=== PATIENT | female | born 1930 | race Caucasian/White ===

== ENCOUNTER 2020-08-19 21:59 | Inpatient (IN) ==
[2020-08-20] MEDS ORDERED: Naloxone 0.4 MG/ML INJ IVP PRN (00:31)
[2020-08-20] MEDS ORDERED: Ondansetron 4 MG/2 ML VIAL IVP PRN (00:31)
[2020-08-20 01:21] LABS: Basophils % 0.7 %; Eosinophils # 0.1 K/mcL (0.0-0.6); Eosinophils % 1.5 %; Hematocrit 38.6 % (35.3-44.9); Hemoglobin 13.2 g/dL (11.5-15.4); Immature Granulocytes % 0.4 % (0-4); Lymphocytes % 18.4 %; Mean Corpuscular HGB Conc 34.2 g/dL (31.6-35.5); Mean Corpuscular Hemoglobin 30.6 pg (28.0-33.3); Mean Corpuscular Volume 89.4 fL (83.0-100.0); Monocytes # 0.8 K/mcL (0.0-1.3); Monocytes % 13.8 %; Neutrophils # 3.5 K/mcL (1.6-8.9); Platelet Count 209 K/mcL (140-400); Red Blood Count 4.32 M/mcL (3.82-4.97); Red Cell Distribution Width 13.7 % (11.5-14.5); Segmented Neutrophils % 65.2 %; White Blood Count 5.4 K/mcL (4.3-11.1)
[2020-08-20 01:28] LABS: INR 2.6; Prothrombin Time 29.5 Seconds (9.4-12.1)
[2020-08-20 01:41] LABS: Alanine Aminotransferase 291 Units/L (7-52); Albumin 4.1 g/dL (3.5-5.7); Albumin/Globulin Ratio 1.5 (1.1-2.2); Alkaline Phosphatase 279 Units/L (34-104); Aspartate Amino Transferase 162 Units/L (13-39); BUN/Creatinine Ratio 19 (6-26); Bilirubin,Total 1.7 mg/dL (0.3-1.0); Blood Urea Nitrogen 11 mg/dL (8-23); Calcium 9.3 mg/dL (8.6-10.3); Carbon Dioxide 22 mEq/L (23-29); Chloride 100 mEq/L (98-107); Chol/HDL Ratio 2.4 (0-4.9); Cholesterol 185 mg/dL (< 200); Globulin 2.7 g/dL (2.4-3.5); Glucose 116 mg/dL (70-105); HDL Cholesterol 76 mg/dL (40-59); LDL Cholesterol,Calculated 98 mg/dL (< 100); Osmolality,Calculated 274 (280-300); Sodium 132 mEq/L (136-145); Total Protein 6.8 g/dL (6.4-8.9); Triglycerides 55 mg/dL (< 150); eGFR For African Americans > 60 (> 60); eGFR For Non-African Americans > 60 (> 60)
[2020-08-20] MEDS: Ringers Solution, Lactated 1,000 ML IVC SCH ×2 (01:52→11:44)
[2020-08-20 02:54] LABS: Hepatitis B Surface Antigen Nonreactive (Nonreactive)
[2020-08-20 03:22] LABS: Hepatitis C Virus Antibody Nonreactive (Nonreactive)
[2020-08-20 03:23] LABS: Hepatitis B Core IgM Nonreactive (Nonreactive)
[2020-08-20 03:24] LABS: Hepatitis A Antibody IgM Nonreactive (Nonreactive)
[2020-08-20 07:56] LABS: Bilirubin,Urine Negative (Negative); Blood,Urine Negative (Negative); Clarity,Urine Clear (Clear); Color,Urine Light-Yellow (Yellow); Glucose,Urine (UA) Normal (Normal); Ketones,Urine 10 mg/dL (Negative); Leukocyte Esterase,Urine Negative (Negative); Nitrite,Urine Negative (Negative); PH,Urine 7.5 pH Units (5.0-8.0); Protein,Urine Negative (Neg-Trace); Urobilinogen,Urine Normal (Normal)
[2020-08-20] MEDS ORDERED: Gadolinium Contrast Agent (WT Based) IV PRN (12:29)
[2020-08-20] MEDS ORDERED: *HR* LORazepam 2 MG/ML VIAL IVP ONE (12:44)
[2020-08-20] MEDS ORDERED: GADOBUTROL 30 MMOL/30 ML VIAL IVP ONE (13:00)
[2020-08-20] MEDS: Carbidopa/Levodopa ER 50/200 TABLET PO SCH ×2 (15:09→20:27)
[2020-08-20] MEDS: Gabapentin 100 MG CAPSULE PO SCH (20:28)
[2020-08-21 02:58] LABS: Basophils # 0.1 K/mcL (0.0-0.2); Eosinophils # 0.2 K/mcL (0.0-0.6); Eosinophils % 3.1 %; Hematocrit 39.6 % (35.3-44.9); Hemoglobin 12.7 g/dL (11.5-15.4); Immature Granulocytes % 0.6 % (0-4); Lymphocytes # 1.2 K/mcL (0.6-4.6); Lymphocytes % 24.6 %; Mean Corpuscular HGB Conc 32.1 g/dL (31.6-35.5); Mean Corpuscular Hemoglobin 30.1 pg (28.0-33.3); Mean Corpuscular Volume 93.8 fL (83.0-100.0); Mean Platelet Volume 9.1 fL (9.4-12.4); Monocytes # 0.7 K/mcL (0.0-1.3); Monocytes % 14.4 %; Neutrophils # 2.7 K/mcL (1.6-8.9); Platelet Count 174 K/mcL (140-400); Red Blood Count 4.22 M/mcL (3.82-4.97); Red Cell Distribution Width 14.2 % (11.5-14.5); Segmented Neutrophils % 56.3 %; White Blood Count 4.9 K/mcL (4.3-11.1)
[2020-08-21 03:09] LABS: BUN/Creatinine Ratio 28 (6-26); Blood Urea Nitrogen 14 mg/dL (8-23); Calcium 8.8 mg/dL (8.6-10.3); Carbon Dioxide 20 mEq/L (23-29); Chloride 101 mEq/L (98-107); Glucose 60 mg/dL (70-105); Osmolality,Calculated 278 (280-300); Potassium 3.7 mEq/L (3.5-5.1); Sodium 135 mEq/L (136-145); eGFR For African Americans > 60 (> 60); eGFR For Non-African Americans > 60 (> 60)
[2020-08-21] MEDS ORDERED: *HR* Dextrose 50 % in Water (Vial) 50 ML VIAL IVP ONE (05:47)
[2020-08-21] MEDS: lisinopriL 5 MG TABLET PO SCH (07:55)
[2020-08-21] MEDS: Carbidopa/Levodopa ER 50/200 TABLET PO SCH ×3 (07:55→20:20)
[2020-08-21 09:21] LABS: Albumin 3.9 g/dL (3.5-5.7); Albumin/Globulin Ratio 1.4 (1.1-2.2); Bilirubin,Indirect 1.2 mg/dL (0.0-1.0); Bilirubin,Total 2.2 mg/dL (0.3-1.0); Globulin 2.7 g/dL (2.4-3.5); Total Protein 6.6 g/dL (6.4-8.9)
[2020-08-21 10:08] LABS: INR 2.4; Prothrombin Time 26.8 Seconds (9.4-12.1)
[2020-08-21] MEDS: D5% in 0.45% NACL 1,000 ML IVC SCH (11:14)
[2020-08-21] MEDS: Gabapentin 100 MG CAPSULE PO SCH (20:20)
[2020-08-22] MEDS: D5% in 0.45% NACL 1,000 ML IVC SCH (02:12)
[2020-08-22] MEDS: Acetaminophen 325 MG TABLET PO PRN (03:44)
[2020-08-22 05:51] LABS: Basophils % 0.5 %; Eosinophils # 0.1 K/mcL (0.0-0.6); Hematocrit 39.3 % (35.3-44.9); Hemoglobin 12.7 g/dL (11.5-15.4); Immature Granulocytes % 0.5 % (0-4); Lymphocytes # 0.9 K/mcL (0.6-4.6); Lymphocytes % 15.4 %; Mean Corpuscular HGB Conc 32.3 g/dL (31.6-35.5); Mean Corpuscular Hemoglobin 29.3 pg (28.0-33.3); Mean Corpuscular Volume 90.8 fL (83.0-100.0); Monocytes # 0.9 K/mcL (0.0-1.3); Monocytes % 15.4 %; Neutrophils # 3.9 K/mcL (1.6-8.9); Platelet Count 203 K/mcL (140-400); Red Blood Count 4.33 M/mcL (3.82-4.97); Red Cell Distribution Width 13.6 % (11.5-14.5); Segmented Neutrophils % 67.2 %; White Blood Count 5.9 K/mcL (4.3-11.1)
[2020-08-22 05:58] LABS: INR 1.2; Prothrombin Time 14.1 Seconds (9.4-12.1)
[2020-08-22 06:14] LABS: Alanine Aminotransferase 26 Units/L (7-52); Albumin 3.8 g/dL (3.5-5.7); Albumin/Globulin Ratio 1.5 (1.1-2.2); Alkaline Phosphatase 261 Units/L (34-104); Aspartate Amino Transferase 64 Units/L (13-39); BUN/Creatinine Ratio 13 (6-26); Bilirubin,Direct 0.6 mg/dL (0.0-0.2); Bilirubin,Indirect 1.4 mg/dL (0.0-1.0); Blood Urea Nitrogen 6 mg/dL (8-23); Calcium 8.9 mg/dL (8.6-10.3); Carbon Dioxide 23 mEq/L (23-29); Chloride 101 mEq/L (98-107); Globulin 2.5 g/dL (2.4-3.5); Glucose 153 mg/dL (70-105); Osmolality,Calculated 275 (280-300); Potassium 3.4 mEq/L (3.5-5.1); Sodium 132 mEq/L (136-145); Total Protein 6.3 g/dL (6.4-8.9); eGFR For African Americans > 60 (> 60); eGFR For Non-African Americans > 60 (> 60)
[2020-08-22] MEDS: lisinopriL 5 MG TABLET PO SCH (08:00)
[2020-08-22] MEDS: Carbidopa/Levodopa ER 50/200 TABLET PO SCH ×3 (08:00→20:48)
[2020-08-22] MEDS ORDERED: *HR* FentaNYL (PF) 100 MCG/2 ML VIAL ONE (14:11)
[2020-08-22] MEDS ORDERED: *HR* Succinylcholine 200 MG/10 ML VIAL IVP ONE (14:12)
[2020-08-22] MEDS ORDERED: Ondansetron 4 MG/2 ML VIAL ONE (14:13)
[2020-08-22] MEDS ORDERED: *HR* Propofol 200 MG/20 ML VIAL IVP ONE (14:22)
[2020-08-22] MEDS ORDERED: Lidocaine -MPF 4% 5 ML AMPUL ONE (14:22)
[2020-08-22] MEDS ORDERED: Indomethacin 50 MG SUPP.RECT RC ONE (15:08)
[2020-08-22] MEDS ORDERED: Ringers Solution, Lactated 1,000 ML IVC SCH (15:45)
[2020-08-22] MEDS: *HR* Heparin 5,000 UNIT/ML VIAL SQ SCH (18:18)
[2020-08-22] MEDS ORDERED: *HR* Labetalol 20 MG/4 ML SYRINGE IVP PRN (18:46)
[2020-08-22] MEDS: Gabapentin 100 MG CAPSULE PO SCH (20:48)
[2020-08-23 05:44] LABS: INR 1.1; Prothrombin Time 12.6 Seconds (9.4-12.1)
[2020-08-23 05:59] LABS: Alanine Aminotransferase 21 Units/L (7-52); Albumin 3.3 g/dL (3.5-5.7); Albumin/Globulin Ratio 1.4 (1.1-2.2); Alkaline Phosphatase 178 Units/L (34-104); Aspartate Amino Transferase 47 Units/L (13-39); BUN/Creatinine Ratio 14 (6-26); Bilirubin,Direct 0.3 mg/dL (0.0-0.2); Bilirubin,Indirect 0.9 mg/dL (0.0-1.0); Bilirubin,Total 1.2 mg/dL (0.3-1.0); Blood Urea Nitrogen 7 mg/dL (8-23); Calcium 8.5 mg/dL (8.6-10.3); Carbon Dioxide 23 mEq/L (23-29); Chloride 101 mEq/L (98-107); Globulin 2.3 g/dL (2.4-3.5); Glucose 120 mg/dL (70-105); Osmolality,Calculated 279 (280-300); Potassium 4.4 mEq/L (3.5-5.1); Sodium 135 mEq/L (136-145); Total Protein 5.6 g/dL (6.4-8.9); eGFR For African Americans > 60 (> 60); eGFR For Non-African Americans > 60 (> 60)
[2020-08-23] MEDS: *HR* Heparin 5,000 UNIT/ML VIAL SQ SCH ×2 (06:11→16:18)
[2020-08-23] MEDS: D5% in 0.45% NACL 1,000 ML IVC SCH ×2 (09:01→19:50)
[2020-08-23] MEDS: Carbidopa/Levodopa ER 50/200 TABLET PO SCH ×3 (09:01→19:50)
[2020-08-23] MEDS: lisinopriL 5 MG TABLET PO SCH (09:01)
[2020-08-23] MEDS: Acetaminophen 325 MG TABLET PO PRN (16:23)
[2020-08-23] MEDS: Gabapentin 100 MG CAPSULE PO SCH (19:49)
[2020-08-24] MEDS: *HR* Heparin 5,000 UNIT/ML VIAL SQ SCH (05:12)
[2020-08-24] MEDS: Acetaminophen 325 MG TABLET PO PRN (05:12)
[2020-08-24 07:20] LABS: Hematocrit 35.8 % (35.3-44.9); Hemoglobin 11.5 g/dL (11.5-15.4); Mean Corpuscular HGB Conc 32.1 g/dL (31.6-35.5); Mean Corpuscular Hemoglobin 30.1 pg (28.0-33.3); Mean Corpuscular Volume 93.7 fL (83.0-100.0); Mean Platelet Volume 9.6 fL (9.4-12.4); Platelet Count 184 K/mcL (140-400); Red Blood Count 3.82 M/mcL (3.82-4.97); Red Cell Distribution Width 14.1 % (11.5-14.5); White Blood Count 5.5 K/mcL (4.3-11.1)
[2020-08-24] MEDS: Carbidopa/Levodopa ER 50/200 TABLET PO SCH (08:03)
[2020-08-24 08:04] VITALS: BP 171/80
[2020-08-24] MEDS: lisinopriL 5 MG TABLET PO SCH (08:04)
[2020-08-24 08:26] LABS: Alanine Aminotransferase 36 Units/L (7-52); Albumin 3.2 g/dL (3.5-5.7); Albumin/Globulin Ratio 1.4 (1.1-2.2); Alkaline Phosphatase 164 Units/L (34-104); Aspartate Amino Transferase 30 Units/L (13-39); BUN/Creatinine Ratio 18 (6-26); Bilirubin,Direct 0.3 mg/dL (0.0-0.2); Bilirubin,Indirect 0.6 mg/dL (0.0-1.0); Bilirubin,Total 0.9 mg/dL (0.3-1.0); Blood Urea Nitrogen 11 mg/dL (8-23); Calcium 8.4 mg/dL (8.6-10.3); Carbon Dioxide 27 mEq/L (23-29); Chloride 103 mEq/L (98-107); Globulin 2.3 g/dL (2.4-3.5); Glucose 105 mg/dL (70-105); Magnesium 1.6 mg/dL (1.6-2.6); Osmolality,Calculated 278 (280-300); Phosphorous 1.9 mg/dL (2.7-4.5); Potassium 4.2 mEq/L (3.5-5.1); Sodium 134 mEq/L (136-145); Total Protein 5.5 g/dL (6.4-8.9); eGFR For African Americans > 60 (> 60); eGFR For Non-African Americans > 60 (> 60)
[2020-08-24 09:14] LABS: Adenovirus Not Detected (Not Detect); Bordetella Pertussis Not Detected (Not Detect); Chlamydophila pneumoniae Not Detected (Not Detect); Coronavirus 229E Not Detected (Not Detect); Coronavirus HKU1 Not Detected (Not Detect); Coronavirus NL63 Not Detected (Not Detect); Coronavirus OC43 Not Detected (Not Detect); Human Metapneumovirus Not Detected (Not Detect); Human Rhinovirus/Enterovirus Not Detected (Not Detect); Influenza A Subtype 2009 H1 Not Detected (Not Detect); Influenza B Not Detected (Not Detect); Mycoplasma pneumoniae Not Detected (Not Detect); Parainfluenza Virus 1 Not Detected (Not Detect); Parainfluenza Virus 2 Not Detected (Not Detect); Parainfluenza Virus 3 Not Detected (Not Detect); Parainfluenza Virus 4 Not Detected (Not Detect); Respiratory Syncytial Virus Not Detected (Not Detect); SARS-CoV-2 Not Detected (Not Detect)
[2020-08-24] MEDS ORDERED: *HR* Enoxaparin 40 MG/0.4 ML SYRINGE SQ SCH (12:00)
== END 2020-08-24 13:10 | disposition other institution (70) | DRG 445 ==
LOC: 3ANU → SUATTDRO 08-20 00:13
PROVIDERS: ADMIT Student in an Organized Health Care Education/Training Program; ATTEND Internal Medicine

== ENCOUNTER 2020-09-09 09:04 | Inpatient (IN) ==
[2020-09-09] MEDS ORDERED: Naloxone 0.4 MG/ML INJ IVP PRN (17:12)
[2020-09-09] MEDS ORDERED: *HR* HYDROcodone/Acet 5/325 mg TABLET PO PRN (17:12)
[2020-09-09] MEDS: *HR* Heparin 5,000 UNIT/ML VIAL SQ SCH (20:22)
[2020-09-09] MEDS: Carbidopa/Levodopa ER 50/200 TABLET PO SCH (20:38)
[2020-09-09] MEDS: Gabapentin 100 MG CAPSULE PO SCH (20:39)
[2020-09-09] MEDS: Ondansetron 4 MG/2 ML VIAL IVP PRN (20:44)
[2020-09-09] MEDS ORDERED: *HR* Promethazine 25 MG/ML VIAL IM PRN (21:23)
[2020-09-09] MEDS: Melatonin 3 MG TABLET PO PRN (23:40)
[2020-09-10] MEDS: *HR* Heparin 5,000 UNIT/ML VIAL SQ SCH ×2 (05:13→16:58)
[2020-09-10 05:46] LABS: Immature Granulocytes % 0.6 % (0-4); Monocytes % 11.4 %; Red Cell Distribution Width 13.6 % (11.5-14.5)
[2020-09-10 05:48] LABS: Basophils # 0.1 K/mcL (0.0-0.2); Eosinophils # 0.3 K/mcL (0.0-0.6); Eosinophils % 2.9 %; Hematocrit 38.1 % (35.3-44.9); Immature Platelets 7.1 % (1.1-6.1); Lymphocytes # 1.7 K/mcL (0.6-4.6); Lymphocytes % 18.8 %; Mean Corpuscular HGB Conc 31.5 g/dL (31.6-35.5); Mean Corpuscular Hemoglobin 29.6 pg (28.0-33.3); Mean Corpuscular Volume 94.1 fL (83.0-100.0); Mean Platelet Volume 10.5 fL (9.4-12.4); Neutrophils # 5.9 K/mcL (1.6-8.9); Platelet Count 247 K/mcL (140-400); Red Blood Count 4.05 M/mcL (3.82-4.97); Segmented Neutrophils % 65.3 %
[2020-09-10 05:51] LABS: INR 1.1; Prothrombin Time 12.6 Seconds (9.4-12.1)
[2020-09-10 06:04] LABS: Alanine Aminotransferase 4 Units/L (7-52); Albumin 3.6 g/dL (3.5-5.7); Albumin/Globulin Ratio 1.3 (1.1-2.2); Alkaline Phosphatase 87 Units/L (34-104); Aspartate Amino Transferase 18 Units/L (13-39); BUN/Creatinine Ratio 44 (6-26); Bilirubin,Direct 0.1 mg/dL (0.0-0.2); Bilirubin,Indirect 0.4 mg/dL (0.0-1.0); Bilirubin,Total 0.5 mg/dL (0.3-1.0); Blood Urea Nitrogen 27 mg/dL (8-23); Calcium 9.3 mg/dL (8.6-10.3); Carbon Dioxide 29 mEq/L (23-29); Chloride 100 mEq/L (98-107); Globulin 2.7 g/dL (2.4-3.5); Glucose 95 mg/dL (70-105); Magnesium 2.1 mg/dL (1.6-2.6); Osmolality,Calculated 283 (280-300); Phosphorous 3.5 mg/dL (2.7-4.5); Potassium 4.3 mEq/L (3.5-5.1); Sodium 134 mEq/L (136-145); Total Protein 6.3 g/dL (6.4-8.9); eGFR For African Americans > 60 (> 60); eGFR For Non-African Americans > 60 (> 60)
[2020-09-10] MEDS: Carbidopa/Levodopa ER 50/200 TABLET PO SCH ×3 (08:39→20:26)
[2020-09-10] MEDS: Megestrol Acetate 400 MG/10 ML UDC PO SCH (08:40)
[2020-09-10] MEDS ORDERED: *HR* Propofol 200 MG/20 ML VIAL IVP ONE (13:12)
[2020-09-10] MEDS ORDERED: Lidocaine -MPF 2% 5 ML VIAL ONE (13:12)
[2020-09-10] MEDS ORDERED: Lidocaine HCL 4 ML Topical Solution (Laryng-O-Jet Kit Sterile Pak) TP ONE (13:12)
[2020-09-10] MEDS ORDERED: *HR* Succinylcholine 200 MG/10 ML VIAL IVP ONE (13:12)
[2020-09-10] MEDS ORDERED: Ondansetron 4 MG/2 ML VIAL ONE (13:12)
[2020-09-10] MEDS ORDERED: ALPRAZolam 0.5 MG TABLET PO ONE (16:11)
[2020-09-10] MEDS ORDERED: Warfarin perPT PO PRN (18:00)
[2020-09-10] MEDS ORDERED: *HR* Warfarin 4 MG TABLET PO ONE (18:00)
[2020-09-10] MEDS: Gabapentin 100 MG CAPSULE PO SCH (20:26)
[2020-09-11 04:32] LABS: Hematocrit 34.7 % (35.3-44.9); Hemoglobin 11.2 g/dL (11.5-15.4); Mean Corpuscular HGB Conc 32.3 g/dL (31.6-35.5); Mean Corpuscular Hemoglobin 30.2 pg (28.0-33.3); Mean Corpuscular Volume 93.5 fL (83.0-100.0); Mean Platelet Volume 9.2 fL (9.4-12.4); Platelet Count 250 K/mcL (140-400); Red Blood Count 3.71 M/mcL (3.82-4.97); Red Cell Distribution Width 13.6 % (11.5-14.5); White Blood Count 8.2 K/mcL (4.3-11.1)
[2020-09-11 04:45] LABS: INR 1.2; Prothrombin Time 13.4 Seconds (9.4-12.1)
[2020-09-11 04:52] LABS: Alanine Aminotransferase 5 Units/L (7-52); Albumin 3.2 g/dL (3.5-5.7); Albumin/Globulin Ratio 1.3 (1.1-2.2); Alkaline Phosphatase 96 Units/L (34-104); Aspartate Amino Transferase 25 Units/L (13-39); BUN/Creatinine Ratio 38 (6-26); Bilirubin,Direct 0.2 mg/dL (0.0-0.2); Bilirubin,Indirect 0.6 mg/dL (0.0-1.0); Bilirubin,Total 0.8 mg/dL (0.3-1.0); Blood Urea Nitrogen 20 mg/dL (8-23); Calcium 8.7 mg/dL (8.6-10.3); Carbon Dioxide 24 mEq/L (23-29); Chloride 100 mEq/L (98-107); Globulin 2.4 g/dL (2.4-3.5); Glucose 85 mg/dL (70-105); Osmolality,Calculated 276 (280-300); Potassium 3.9 mEq/L (3.5-5.1); Sodium 132 mEq/L (136-145); Total Protein 5.6 g/dL (6.4-8.9); eGFR For African Americans > 60 (> 60); eGFR For Non-African Americans > 60 (> 60)
[2020-09-11] MEDS: *HR* Heparin 5,000 UNIT/ML VIAL SQ SCH ×2 (05:04→17:31)
[2020-09-11] MEDS: Megestrol Acetate 400 MG/10 ML UDC PO SCH (08:06)
[2020-09-11] MEDS: Carbidopa/Levodopa ER 50/200 TABLET PO SCH ×3 (08:06→20:08)
[2020-09-11] MEDS: Ondansetron 4 MG/2 ML VIAL IVP PRN (08:47)
[2020-09-11] MEDS: 0.9 % Sodium Chloride 1,000 ML IVC SCH (12:10)
[2020-09-11] MEDS: Sennosides/Docusate Sodium TABLET PO SCH ×2 (12:14→20:07)
[2020-09-11] MEDS: lisinopriL 5 MG TABLET PO SCH (12:14)
[2020-09-11] MEDS: *HR* OxyCODONE ER (12 HR) 10 MG TABLET PO SCH (17:30)
[2020-09-11] MEDS: Ondansetron 4 MG/2 ML VIAL IVP SCH (17:31)
[2020-09-11] MEDS ORDERED: *HR* Warfarin 4 MG TABLET PO ONE (18:00)
[2020-09-11] MEDS: Gabapentin 100 MG CAPSULE PO SCH (20:08)
[2020-09-11] MEDS: Melatonin 3 MG TABLET PO PRN (20:14)
[2020-09-12] MEDS: 0.9 % Sodium Chloride 1,000 ML IVC SCH (00:50)
[2020-09-12] MEDS: Ondansetron 4 MG/2 ML VIAL IVP SCH ×2 (02:23→05:38)
[2020-09-12] MEDS: *HR* Heparin 5,000 UNIT/ML VIAL SQ SCH ×2 (05:37→17:07)
[2020-09-12] MEDS: *HR* OxyCODONE ER (12 HR) 10 MG TABLET PO SCH ×2 (05:38→17:07)
[2020-09-12 05:42] LABS: Basophils % 0.4 %; Eosinophils # 0.2 K/mcL (0.0-0.6); Hematocrit 36.1 % (35.3-44.9); Hemoglobin 11.8 g/dL (11.5-15.4); Immature Granulocytes % 0.4 % (0-4); Lymphocytes # 1.4 K/mcL (0.6-4.6); Lymphocytes % 17.2 %; Mean Corpuscular HGB Conc 32.7 g/dL (31.6-35.5); Mean Corpuscular Hemoglobin 30.3 pg (28.0-33.3); Mean Corpuscular Volume 92.6 fL (83.0-100.0); Mean Platelet Volume 9.3 fL (9.4-12.4); Monocytes # 0.8 K/mcL (0.0-1.3); Monocytes % 10.6 %; Neutrophils # 5.5 K/mcL (1.6-8.9); Platelet Count 271 K/mcL (140-400); Red Cell Distribution Width 13.6 % (11.5-14.5); Segmented Neutrophils % 69.4 %; White Blood Count 7.9 K/mcL (4.3-11.1)
[2020-09-12 05:44] LABS: INR 1.3; Prothrombin Time 14.8 Seconds (9.4-12.1)
[2020-09-12 07:29] LABS: BUN/Creatinine Ratio 31 (6-26); Blood Urea Nitrogen 21 mg/dL (8-23); Calcium 8.6 mg/dL (8.6-10.3); Carbon Dioxide 25 mEq/L (23-29); Chloride 105 mEq/L (98-107); Glucose 112 mg/dL (70-105); Magnesium 1.8 mg/dL (1.6-2.6); Osmolality,Calculated 284 (280-300); Phosphorous 2.5 mg/dL (2.7-4.5); Potassium 3.9 mEq/L (3.5-5.1); Sodium 135 mEq/L (136-145); eGFR For African Americans > 60 (> 60); eGFR For Non-African Americans > 60 (> 60)
[2020-09-12] MEDS: Megestrol Acetate 400 MG/10 ML UDC PO SCH (08:14)
[2020-09-12] MEDS: Carbidopa/Levodopa ER 50/200 TABLET PO SCH ×3 (08:14→19:22)
[2020-09-12] MEDS: Sennosides/Docusate Sodium TABLET PO SCH ×2 (08:14→19:22)
[2020-09-12] MEDS: lisinopriL 5 MG TABLET PO SCH (08:15)
[2020-09-12] MEDS: Ondansetron ODT 4 MG TAB.RAPDIS SL PRN ×2 (17:07→22:21)
[2020-09-12] MEDS: Melatonin 3 MG TABLET PO PRN (19:22)
[2020-09-12] MEDS: *HR* OxyCODONE Immed Rel 5 MG TABLET PO PRN (19:22)
[2020-09-12] MEDS: Gabapentin 100 MG CAPSULE PO SCH (19:22)
[2020-09-12] MEDS ORDERED: *HR* Metoprolol 5 MG/5 ML VIAL IVP ONE (20:05)
[2020-09-13] MEDS ORDERED: Prochlorperazine 10 MG/2 ML VIAL IVP PRN ×2 (00:08→05:43)
[2020-09-13] MEDS ORDERED: Acetaminophen IV 500 MG/50 ML BAG IVPB ONE (00:09)
[2020-09-13] MEDS: *HR* Heparin 5,000 UNIT/ML VIAL SQ SCH ×2 (05:04→16:32)
[2020-09-13] MEDS: *HR* OxyCODONE ER (12 HR) 10 MG TABLET PO SCH (05:04)
[2020-09-13] MEDS: lisinopriL 5 MG TABLET PO SCH (08:24)
[2020-09-13] MEDS: Megestrol Acetate 400 MG/10 ML UDC PO SCH (08:25)
[2020-09-13] MEDS: Sennosides/Docusate Sodium TABLET PO SCH ×2 (08:25→20:47)
[2020-09-13] MEDS: Carbidopa/Levodopa ER 50/200 TABLET PO SCH ×3 (08:25→20:47)
[2020-09-13 08:49] LABS: INR 1.5; Prothrombin Time 16.9 Seconds (9.4-12.1)
[2020-09-13 09:05] LABS: BUN/Creatinine Ratio 40 (6-26); Blood Urea Nitrogen 19 mg/dL (8-23); Calcium 9.3 mg/dL (8.6-10.3); Carbon Dioxide 24 mEq/L (23-29); Chloride 105 mEq/L (98-107); Glucose 113 mg/dL (70-105); Magnesium 1.8 mg/dL (1.6-2.6); Osmolality,Calculated 285 (280-300); Phosphorous 2.7 mg/dL (2.7-4.5); Potassium 4.2 mEq/L (3.5-5.1); Sodium 136 mEq/L (136-145); eGFR For African Americans > 60 (> 60); eGFR For Non-African Americans > 60 (> 60)
[2020-09-13] MEDS ORDERED: Ondansetron ODT 4 MG TAB.RAPDIS SL PRN (11:21)
[2020-09-13] MEDS ORDERED: *HR* Warfarin 4 MG TABLET PO ONE (18:00)
[2020-09-13] MEDS: Gabapentin 100 MG CAPSULE PO SCH (20:46)
[2020-09-13] MEDS: *HR* OxyCODONE Immed Rel 5 MG TABLET PO PRN (20:46)
[2020-09-14] MEDS: *HR* OxyCODONE Immed Rel 5 MG TABLET PO PRN (02:45)
[2020-09-14 03:23] VITALS: O2SAT 97
[2020-09-14] MEDS: *HR* Heparin 5,000 UNIT/ML VIAL SQ SCH (05:19)
[2020-09-14 07:02] VITALS: BP 158/81; PULSE 118; TEMP 98
[2020-09-14 07:02] LABS: INR 1.7; Prothrombin Time 19.4 Seconds (9.4-12.1)
[2020-09-14] MEDS: lisinopriL 5 MG TABLET PO SCH (08:14)
[2020-09-14] MEDS: Sennosides/Docusate Sodium TABLET PO SCH (08:14)
[2020-09-14] MEDS: Carbidopa/Levodopa ER 50/200 TABLET PO SCH (08:14)
[2020-09-14] MEDS: Megestrol Acetate 400 MG/10 ML UDC PO SCH (08:15)
[2020-09-14] MEDS ORDERED: *HR* OxyCODONE ER (12 HR) 10 MG TABLET PO SCH (09:00)
[2020-09-14 13:48] LABS: Bacteria,Urine Few per hpf (None-Few); Bilirubin,Urine Negative (Negative); Blood,Urine Negative (Negative); Clarity,Urine Clear (Clear); Color,Urine Light-Yellow (Yellow); Glucose,Urine (UA) Normal (Normal); Ketones,Urine Negative (Negative); Leukocyte Esterase,Urine Small (Negative); Mucus,Urine Few per lpf (None-Few); Nitrite,Urine Negative (Negative); PH,Urine 6.5 pH Units (5.0-8.0); Protein,Urine Negative (Neg-Trace); Squamous Epithelial Cell,Urine Few per hpf (None-Few); Urobilinogen,Urine Normal (Normal)
[2020-09-14] MEDS ORDERED: *HR* Warfarin 4 MG TABLET PO ONE (18:00)
== END 2020-09-14 13:26 | DRG 435 ==
LOC: 3ANU → SUATTDRO 13:21 → 3BNU 23:31 → SUATTDRO 09-11 10:11 → 3BNU 09-11 17:24
PROVIDERS: ADMIT Internal Medicine; ATTEND Registered Nurse
PROC: ENDOEUS (2020-09-10 13:00)

== ENCOUNTER 2020-09-30 18:06 | Observation (INO) ==
[2020-09-30] MEDS ORDERED: Naloxone 0.4 MG/ML INJ IVP PRN (19:31)
[2020-09-30] MEDS ORDERED: Melatonin 3 MG TABLET PO PRN (19:36)
[2020-09-30] MEDS ORDERED: Ondansetron 4 MG/2 ML VIAL IVP PRN (19:36)
[2020-09-30] MEDS ORDERED: 0.9 % Sodium Chloride 1,000 ML IVC SCH (19:45)
[2020-09-30 20:15] LABS: Basophils # 0.1 K/mcL (0.0-0.2); Basophils % 0.7 %; Eosinophils # 0.3 K/mcL (0.0-0.6); Eosinophils % 3.1 %; Hematocrit 40.2 % (35.3-44.9); Hemoglobin 12.7 g/dL (11.5-15.4); Immature Granulocytes % 0.5 % (0-4); Lymphocytes # 1.7 K/mcL (0.6-4.6); Lymphocytes % 19.4 %; Mean Corpuscular HGB Conc 31.6 g/dL (31.6-35.5); Mean Corpuscular Hemoglobin 29.1 pg (28.0-33.3); Mean Platelet Volume 9.1 fL (9.4-12.4); Monocytes # 0.9 K/mcL (0.0-1.3); Monocytes % 10.7 %; Neutrophils # 5.7 K/mcL (1.6-8.9); Platelet Count 305 K/mcL (140-400); Red Blood Count 4.37 M/mcL (3.82-4.97); Red Cell Distribution Width 13.5 % (11.5-14.5); Segmented Neutrophils % 65.6 %; White Blood Count 8.7 K/mcL (4.3-11.1)
[2020-09-30 20:34] LABS: Alanine Aminotransferase 6 Units/L (7-52); Albumin/Globulin Ratio 1.2 (1.1-2.2); Alkaline Phosphatase 94 Units/L (34-104); Aspartate Amino Transferase 16 Units/L (13-39); BUN/Creatinine Ratio 41 (6-26); Bilirubin,Total 0.4 mg/dL (0.3-1.0); Blood Urea Nitrogen 24 mg/dL (8-23); Calcium 9.5 mg/dL (8.6-10.3); Carbon Dioxide 24 mEq/L (23-29); Chloride 103 mEq/L (98-107); Globulin 3.4 g/dL (2.4-3.5); Glucose 97 mg/dL (70-105); Osmolality,Calculated 288 (280-300); Potassium 3.9 mEq/L (3.5-5.1); Sodium 137 mEq/L (136-145); Total Protein 7.4 g/dL (6.4-8.9); eGFR For African Americans > 60 (> 60); eGFR For Non-African Americans > 60 (> 60)
[2020-09-30 21:16] LABS: Bacteria,Urine Few per hpf (None-Few); Bilirubin,Urine Negative (Negative); Blood,Urine Negative (Negative); Clarity,Urine Clear (Clear); Color,Urine Light-Yellow (Yellow); Glucose,Urine (UA) Normal (Normal); Ketones,Urine Negative (Negative); Leukocyte Esterase,Urine Small (Negative); Mucus,Urine Few per lpf (None-Few); Nitrite,Urine Negative (Negative); Protein,Urine Negative (Neg-Trace); RBC,Urine 0-3 per hpf (0-3); Specific Gravity,Urine 1.015 (1.010-1.025); Squamous Epithelial Cell,Urine Few per hpf (None-Few); Uric Acid Crystals,Urine Present per hpf; Urobilinogen,Urine Normal (Normal)
[2020-09-30] MEDS ORDERED: *HR* Heparin 5,000 UNIT/ML VIAL SQ ONE (22:00)
[2020-10-01 02:06] LABS: Hematocrit 33.4 % (35.3-44.9); Mean Corpuscular HGB Conc 32.6 g/dL (31.6-35.5); Mean Corpuscular Hemoglobin 29.5 pg (28.0-33.3); Mean Corpuscular Volume 90.5 fL (83.0-100.0); Mean Platelet Volume 9.5 fL (9.4-12.4); Platelet Count 262 K/mcL (140-400); Red Blood Count 3.69 M/mcL (3.82-4.97); Red Cell Distribution Width 13.5 % (11.5-14.5); White Blood Count 7.6 K/mcL (4.3-11.1)
[2020-10-01 02:07] LABS: Hemoglobin 10.9 g/dL (11.5-15.4)
[2020-10-01 02:19] LABS: INR 1.1; Prothrombin Time 12.8 Seconds (9.4-12.1)
[2020-10-01 02:21] LABS: Activated Partial Thrombo Time 28.5 Seconds (26.0-36.0)
[2020-10-01 02:26] LABS: BUN/Creatinine Ratio 45 (6-26); Blood Urea Nitrogen 24 mg/dL (8-23); Calcium 8.6 mg/dL (8.6-10.3); Carbon Dioxide 23 mEq/L (23-29); Chloride 106 mEq/L (98-107); Glucose 104 mg/dL (70-105); Osmolality,Calculated 288 (280-300); Potassium 3.9 mEq/L (3.5-5.1); Sodium 137 mEq/L (136-145); eGFR For African Americans > 60 (> 60); eGFR For Non-African Americans > 60 (> 60)
[2020-10-01] MEDS ORDERED: *HR* FentaNYL (PF) 100 MCG/2 ML VIAL ONE (12:34)
[2020-10-01] MEDS ORDERED: Ondansetron 4 MG/2 ML VIAL ONE (12:34)
[2020-10-01] MEDS ORDERED: *HR* Rocuronium Bromide 50 MG/5 ML VIAL ONE (12:34)
[2020-10-01] MEDS ORDERED: *HR* Propofol 200 MG/20 ML VIAL IVP ONE (12:34)
[2020-10-01] MEDS ORDERED: Lidocaine -MPF 2% 5 ML VIAL ONE (12:34)
[2020-10-01] MEDS ORDERED: Lidocaine HCL 4 ML Topical Solution (Laryng-O-Jet Kit Sterile Pak) TP ONE (12:37)
[2020-10-01] MEDS ORDERED: *HR* HYDROmorphone PF 0.5 MG/0.5 ML SYRINGE IVP PRN (12:45)
[2020-10-01] MEDS ORDERED: Ondansetron 4 MG/2 ML VIAL IVP PRN (12:45)
[2020-10-01] MEDS ORDERED: *HR* OxyCODONE Immed Rel 5 MG TABLET PO PRN (12:45)
[2020-10-01] MEDS ORDERED: Bupivacaine-MPF 0.25% 10 ML VIAL INFILT ONE (12:45)
[2020-10-01] MEDS ORDERED: Promethazine 6.25 MG in Water for inj. (sterile) 20 ML IVPB PRN (12:45)
[2020-10-01] MEDS ORDERED: Ampicillin/Sulbactam 1,500 MG in 0.9 % Sodium Chloride Mini Bag 100 ML IVPB ONE (12:48)
[2020-10-01] MEDS ORDERED: *HR* Succinylcholine 200 MG/10 ML VIAL IVP ONE (13:48)
[2020-10-01] MEDS ORDERED: Indomethacin 50 MG SUPP.RECT RC ONE (14:22)
[2020-10-01] MEDS ORDERED: *HR* Labetalol 20 MG/4 ML SYRINGE IVP ONE (15:11)
[2020-10-01] MEDS: *HR* Labetalol 20 MG/4 ML SYRINGE IVP PRN ×3 (15:19→15:31)
[2020-10-01] MEDS: Carbidopa/Levodopa ER 50/200 TABLET PO SCH ×2 (16:36→20:46)
[2020-10-01] MEDS: *HR* Heparin 5,000 UNIT/ML VIAL SQ SCH (16:37)
[2020-10-01] MEDS ORDERED: *HR* OxyCODONE ER (12 HR) 10 MG TABLET PO SCH (18:00)
[2020-10-01] MEDS: *HR* LORazepam 0.5 MG TABLET PO SCH (20:46)
[2020-10-01] MEDS: hydrOXYzine pamoate 25 MG CAPSULE PO SCH (20:47)
[2020-10-01] MEDS ORDERED: Gabapentin 100 MG CAPSULE PO SCH (21:00)
[2020-10-02 04:55] LABS: Hematocrit 31.4 % (35.3-44.9); Hemoglobin 10.3 g/dL (11.5-15.4)
[2020-10-02 05:14] LABS: BUN/Creatinine Ratio 38 (6-26); Blood Urea Nitrogen 23 mg/dL (8-23); Calcium 8.5 mg/dL (8.6-10.3); Carbon Dioxide 22 mEq/L (23-29); Chloride 106 mEq/L (98-107); Glucose 90 mg/dL (70-105); Magnesium 1.9 mg/dL (1.6-2.6); Osmolality,Calculated 285 (280-300); Phosphorous 4.4 mg/dL (2.7-4.5); Potassium 3.9 mEq/L (3.5-5.1); Sodium 136 mEq/L (136-145); eGFR For African Americans > 60 (> 60); eGFR For Non-African Americans > 60 (> 60)
[2020-10-02] MEDS: *HR* Heparin 5,000 UNIT/ML VIAL SQ SCH (05:31)
[2020-10-02] MEDS: hydrOXYzine pamoate 25 MG CAPSULE PO SCH (08:52)
[2020-10-02] MEDS: Carbidopa/Levodopa ER 50/200 TABLET PO SCH (08:52)
[2020-10-02] MEDS: *HR* LORazepam 0.5 MG TABLET PO SCH (08:52)
[2020-10-02] MEDS ORDERED: lisinopriL 5 MG TABLET PO SCH (09:00)
[2020-10-02] MEDS ORDERED: NON-FORMULARY MEDICATION 1 EACH EACH (Lisinopril [Lisinopril] 2.5 MG Tablet) PO SCH (09:00)
[2020-10-02 12:05] VITALS: BP 116/61; PULSE 91; TEMP 97.7; O2SAT 96
== END 2020-10-02 13:30 ==
LOC: 3BNU → SUATTDRO 18:06 → EDSTATUS 10-01 13:00
PROVIDERS: ADMIT Internal Medicine; ATTEND Internal Medicine
PROC: ENDOEUS (2020-10-01 13:00)